=== PATIENT | male | born 2000 | race Caucasian/White ===

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

== ENCOUNTER 2018-10-06 11:21 | Emergency (ER) | payer OTHER, MEDICAID ==
[2018-10-06 11:41] VITALS: BP 124/87
[2018-10-06] MEDS ORDERED: CEPHALEXIN 500 MG CAP PO ONE (12:23)
--- NOTE | 2018-10-06 12:27 | EDPHY ---
General Time Seen by Provider: 10/06/18 11:55 Narrative: CLINICAL IMPRESSION: Cellulitis left forearm ASSESSMENT/PLAN: 18-year-old male presents to the emergency department with left forearm cellulitis after picking at a small wound on the arm yesterday. No clinical signs of drainable abscess, deep space abscess, necrotizing fasciitis, osteomyelitis or compartment syndrome. No reported history of MRSA. Full movement of elbow wrist and hand with no evidence of septic joint. Patient was started on Keflex, wound margins were outlined, PCP follow-up recommended, warning signs return to ED outlined discharge. DIFFERENTIAL DX: Differential includes but not limited to cellulitis, deep space abscess, necrotizing fasciitis, MRSA CHIEF COMPLAINT: Left arm infection HPI: 18-year-old autistic male presents to the emergency department with his family for concerns of a left forearm infection. Plan shortly of patient's history is obtained from his mother. She reports the patient had a "bump" on the arm that had a "carlos on it" yesterday and she picked at it. Today she has noted increased redness around the wound. Patient has full range of motion of the elbow hand and wrist. No documented fevers or chills at home. No red streaks up the arm. No history of MRSA. He is planning to leave today for [place] with his father. No history of chronic staph infections or prior skin infections. PAST MEDICAL HISTORY: History of Hodgkin's lymphoma, autistic, mental health illness See triage summary and nurse notes for addition applicable history Pertinent Past Surgical History: None reported Family History: Noncontributory Social History: Here with all of his family members, autistic, family provides majority of patient's history REVIEW OF SYSTEMS: A full 10 point review of systems was negative except for those mentioned in HPI. PHYSICAL EXAM: General Appearance: Alert, oriented, appropriate, cooperative, NAD, well hydrated, non-toxic appearing, VSS, no hypoxia. Skin: Small scabbed wound on the left lateral proximal forearm with approximately 2 cm of circumferential erythema. No palpable fluctuance. Mild induration. No drainage. Full range of motion of the elbow. Musculoskeletal:. Full range of motion of elbow wrist and hand. 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 MEDICAL DECISION MAKING: Patient was seen independently. Secondary supervising physician at time of evaluation was: Dr. Thrasher . Diagnosis: Left forearm cellulitis. New, requires workup Summary: See Assessment and Plan for summary of ED visit Patient Progress: Stable for discharge. - History Smoking Status: Never smoked - Objective Vital Signs: Initial Vital Signs Temperature (C) 36.5 C 10/06/18 11:37 Heart Rate 75 10/06/18 11:37 Respiratory Rate 16 10/06/18 11:37 Blood Pressure 124/87 H 10/06/18 11:37 O2 Sat (%) 97 10/06/18 11:37 Allergies/Adverse Reactions: [place] And Derivatives Allergy (Verified 10/06/18 11:36) Home Medications: Medication Instructions Recorded Cephalexin [Keflex (*)] 500 mg PO QID #28 cap 10/06/18 lamOTRIGine 10/06/18 Medications Given: Discontinued Medications Cephalexin HCl (Keflex) 500 mg PO EDNOW ONE PRN Reason: Protocol Stop: 10/06/18 12:24 Last Admin: 10/06/18 12:48 Dose: 500 mg Departure - Departure Disposition: Home, Routine, Self-Care Clinical Impression: Cellulitis Condition: Good Instructions: Cellulitis (ED) Additional Instructions: DISCHARGE INSTRUCTIONS FROM YOUR DOCTOR Thank you for visiting our emergency department today. You were treated by a physician administrative personal assistant today and your case was reviewed with our ED Attending physician. Please keep in mind that discharge from the emergency department does not mean that there is nothing wrong - it simply means that we have not identified an emergency condition that requires further evaluation or treatment in the hospital. You should always plan to follow up with primary care for re- evaluation of your condition in the next 2-3 days. If you have been referred to a specialist, please call as soon as possible (today or tomorrow) to schedule your follow up appointment at the appropriate time. YOU ARE BEING TREATED FOR LEFT ARM CELLULITIS TODAY. PLEASE TAKE KEFLEX PRESCRIBED. THE BORDER OF THE WOUND WAS OUTLINED TODAY. PLEASE MONITOR FOR SPREADING REDNESS, RED STREAKS UP THE ARM, DEVELOPMENT OF FEVER OR CHILLS, NAUSEA OR VOMITING, STIFFNESS TO THE ARM OR DIFFICULTY BENDING THE ELBOW, AND RETURN TO EMERGENCY DEPARTMENT IF ANY OF THESE SYMPTOMS OCCUR. PLEASE FOLLOW- UP WITH A PRIMARY CARE DOCTOR UPON RETURNING FROM YOUR TRIP. People present with illnesses and injuries in different ways, and it is always possible that we have missed something. You may always return for re-evaluation if symptoms worsen or if they are not improving or if you develop new/different symptoms. Again, thank you for choosing our emergency department. We hope that you feel better. Referrals: Mary Garcia MD [Primary Care Provider] - 2-3 days, call for appt. Prescriptions: Cephalexin [Keflex (*)] 500 mg PO QID #28 cap
== END 2018-10-06 12:55 | disposition home or self-care (01) ==
DX: L03.90 Cellulitis, unspecified (principal); Z85.71 Personal history of Hodgkin lymphoma